=== PATIENT | male | born 1965 | race Caucasian/White ===

== ENCOUNTER → 2017-01-10 | Outpatient (CLI) | payer MEDICAID ==
[~2017-01-10] MED LIST: FLOMAX 0.4MG C0.4 MG PO; HYDROCODONE1 TABLET PO; NORCO 325 MG-51 TAB PO
[2017-01-10 18:03] LABS: HEMOGLOBIN 15.6 g/dL (14.1-18.0); LYMPH # 3.3 K/mm3 (0.7-4.5); LYMPH % 43.7 % (10-50)
[2017-01-10 18:54] LABS: BUN 11 mg/dL (7-18)
[2017-01-10 20:10] LABS: GFR (ESTIMATED) 78 ML/MIN (>60)
== END ==
LOC: LAB 16:49
PROVIDERS: Nurse Practitioner Family
DX: R53.83 Other fatigue (principal)

== ENCOUNTER 2017-01-11 11:13 | Emergency (ER) | payer SELFPAY ==
[~2017-01-11] VITALS: Ht 177.8 cm; Wt 90.7 kg
--- NOTE | 2017-01-11 11:30 | Emergency Room Report ---
History of Present Illness Time Seen by MD Hwang Presenting Problem in Triage Pt arrived:Walked Presenting Problem:left side pain below rib cage, from back in to abdomen Onset of symptoms date/time:12/21/16 or onset unknown for: Treatment Prior to Arrival: [employer]ACHINE Provided by: Sepsis Risk Assessment: Temp: 98.7 B/P: 176/92 MAP: 120 Pulse: 86 Resp: 16 Recent fever? N Clinical Suspician of Infection? N Mental Status: 1 - Regular (Normal Baseline) Sepsis Risk:Low Sepsis Risk Have you (or family members/close friends) recently traveled outside the [place]? N If Yes, where/when: Have you had exposure to infectious disease within the past month? N TB? Other? Specify: Comment The patient complains of LEFT flank and abdominal pain for several weeks. He says he goes from his LEFT mid lumbar area around to his umbilicus on the LEFT side. It hurts worse when he leans back against that area. eating food makes his symptoms worse. No fever or vomiting. He saw his primary care provider in the office yesterday and had blood work done. His lipase is elevated. He was advised to come to the emergency room today for further workup including CT scan. He does not drink much alcohol, the only thing he has drank recently is occasional small amounts of moonshine. He does not have any known hypercholesterolemia or hyperlipidemia or hypertriglyceridemia. He does not have any known gallbladder problems. ALLERGIES Coded Allergies: No Known Allergies (09/21/15) Home Medications Reported Medications No Known Home Medications History Medical History General CAD? No Angina: No ME: No Hypertension? No Hyperlipidemia? No CHF? No DVT? No PE? No COPD? No Asthma? No Anemia? No GERD? Yes Gastric ulcers? No GI Bleed? No Hernia? No Thyroid Problems? No Hypothyroidism? No CVA? No Seizures? No Diabetes? No Renal Insuffiency? No End Stage Renal Disease? No UTI? No Stones? Yes GB Disease: No Nephritic Syndrome? No Asplenia? No Hepatitis? No Sickle Cell Disease? No Arthritis? No Migraines? No Cataracts? No Glaucoma? No MRSA? No HIV? No TB? No Anxiety? No Depression? No Cancer? No Immunization Hx DT/Tetanus [id number] Surgical Hx Previous Surgery?Y APPENDICITIS LOW BACK SURG Social History Smoking Hx Smoker: Former Smoker Tobacco: No Packs/day < 1 Pack Alcohol Alcohol: No Review of Systems All Other Systems Reviewed and Negative Constitutional denies fever Gastrointestinal abdominal pain, denies diarrhea, nausea, denies vomiting Musculoskeletal back pain Physical Exam Vital Signs Vital Signs Date Time Temp Pulse Resp B/P Pulse O2 O2 Flow FiO2 Ox Delivery Rate 01/11 1454 98.7 81 16 138/84 97 01/11 1255 86 16 169/71 97 01/11 1117 98.7 86 16 176/92 97 General Appearance no apparent distress Eye Exam - bilateral eye normal exam, bilateral eye PERRL, bilateral eye EOMI Ear, Nose, Throat hearing grossly normal, normal ENT inspection Neck normal inspection, non-tender, supple, full range of motion Respiratory Status Yes: trachea midline, chest symmetrical. No: respiratory distress. Lung Sounds bilateral: normal breath sounds, lungs clear. Cardiovascular normal exam, regular rate/rhythm, no peripheral edema, no gallop, no JVD, no murmur, no rub, normal peripheral pulses Peripheral Pulses Pulses normal Yes Gastrointestinal normal bowel sounds, normal exam, non tender, soft, no organomegaly Back normal inspection, no CVA tenderness, no vertebral tenderness Extremities non-tender, normal range of motion, normal inspection Neurologic alert, normal exam, oriented x 3 Mental status normal mood/affect Skin intact, normal color, warm/dry Medical Decision Making LABS/Meds/Orders Pt receiving controlled substance in ED? No Results/Orders Laboratory Tests 01/11/17 1315: Urine Color YELLOW, Urine Appearance CLEAR, Urine pH 7.5, Ur Specific [place] 1.015, Urine Protein NEGATIVE, Urine Ketones NEGATIVE, Urine Blood 1+ H, Urine Nitrate NEGATIVE, Urine Bilirubin NEGATIVE, Urine Urobilinogen 0.2, Ur Leukocyte Esterase NEGATIVE, Urine RBC 3-5, Urine WBC OCC, Ur Squamous Epith Cells OCC, Urine Bacteria 2+, Urine Mucus 3+, Urine Glucose NEGATIVE 01/11/17 1120: Sodium 139, Potassium 3.8, Chloride 103, Carbon Dioxide 29, BUN 15, Creatinine 0.9, Estimated Creat Clear 122, Estimated GFR (MDRD) 88, Glucose 95, Calcium 9.1 , Total Bilirubin 0.5, AST 31, ALT 53, Alkaline Phosphatase 85, Total Protein 7.8, Albumin 4.0, Globulin 3.8 H, Albumin/Globulin Ratio 1.1, Amylase 79, Lipase 445 H, WBC 9.1, RBC 5.28, Hgb 15.0, Hct 45.3, MCV 85.7, RDW 13.1, Plt Count 286, MPV 7.1 L, Gran % 42.8, Gran # 3.9, Lymphocytes % 49.4, Monocytes % 6.4, Eosinophils % 0.9, Basophils % 0.5, Lymphocytes # 4.5, Monocytes # 0.6, Eosinophils # 0.1, Basophils # 0.1, PUBS MCHC 33.2, MCH 28.5 Current Medication Orders Sig/Wei Start time Last Medication Dose Route Stop Time Status Admin Iopamidol 75 ML ONCE ONE 01/11 1345 DC 01/11 IV 01/11 1346 1332 Sodium Chloride 10 ML PRN PRN 01/11 1345 DCD 01/11 IV 01/11 1502 1332 Diatrizoate Meglum/ 30 ML ONCE ONE 01/11 1130 DC 01/11 Diatrizoate Sod PO 01/11 1131 1130 Sodium Chloride 10 ML PRN PRN 01/11 1130 DCD IV 01/12 1126 Diatrizoate Meglum/ 0 .STK-MED ONE 01/11 1128 DC Diatrizoate Sod .ROUTE Orders Procedure Date/time Status DIET-NOTHING BY MOUTH 01/11 D Active CULTURE, URINE 01/11 1315 Active URINALYSIS/COMPLETE 01/[address] ABD/PELVIS REQ 01/11 1126 Complete IV SALINE LOCK 01/11 1126 Active LIPASE 01/11 1126 Complete CBC WITH AUTO DIFF 01/11 1126 Complete CHEM 12 PROFILE 01/11 1126 Complete AMYLASE 01/11 1126 Complete XRAY/CT/US XRAY/CT/US CT abdomen, pelvis Comment CT scan interpreted by radiologist: No signs of pancreatitis. No acute process. Progress - 2:20 PM: Case discussed with Dr. Esquivel. Patient will be discharged to follow up in their office next week. Departure Departure Disposition DC Home or Self Care(routine) Clinical Impression Primary Impression: Pancreatitis Qualifiers: Chronicity: acute Pancreatitis type: unspecified pancreatitis type Acute pancreatitis complication: no infection or necrosis Qualified Code: K85.90 - Acute pancreatitis without necrosis or infection, unspecified Condition STABLE Patient Instructions DI for Pancreatitis Additional Instructions Follow-up with Dr. Esquivel in the office next week. Prescriptions Current Visit Scripts No Known Home Medications ED Critical Care Critical Care No at 1947
[2017-01-11 11:43] LABS: LYMPH # 4.5 K/mm3 (0.7-4.5); LYMPH % 49.4 % (10-50)
--- OUTSIDE RECORDS SUMMARY | 2017-01-11 11:58 | External Medical Summary Rpt | CCD ---
Author Author , ARIEL GEORGE Address Unknown Phone [email or web address] Providers Care Applied Anthropologist Name Role Phone [facility] Unavailable Unavailable [facility] [place] OF [facility] Unavailable Unavailable INC, [facility], Unavailable [facility] Un[facility] Unavailable [facility], [facility], Unavailable Unavailable [facility] Purpose Continuity of Care Document - 10-21-2014 through 2016 Problems Code Diagnosis DOS Provider Status D481 NEOPLASM 10-02-2015 [facility] PHYSICI[facility] BHV GROUP CONNCTIVE & OTH SOFT TISS Z9889 OTHER 10-01-2015 [facility] STATES D1739 BENIGN 09-24-2015 [facility] LIPOMATOUS PODIATRY NEOPLASM SKIN & SUBQ OT SITE G8918 OTHER ACUTE 09-24-2015 [facility]U [facility] PAIN I890 LYMPHEDEMA 09-24-2015 [facility] NOT PODIATRY ELSEWHERE CLASSIFIED R2242 LOCALIZED 09-21-2015 [facility] OF [place] AND [place] LEFT LOWER LIMB M799 SOFT TISSUE 09-18-2015 [facility] DISORDER PHYSICIANS UNSPECIFIED GROUP M2570 OSTEOPHYTE 09-15-2015 [facility] UNSPECIFIED PODIATRY JOINT [id number] PAIN IN 09-15-2015 [facility] LEFT FOOT PODIATRY [id number] GANGLION 08-17-2015 [facility] M5010 CERVICAL 12-22-2014 [facility] DISC D/O PHYSICIANS W/RADICULOP GROUP ATHY UNS CERV RGN Z720 TOBACCO USE 12-22-2014 [facility] PHYSICIANS GROUP M5090 CERVICAL 11-20-2014 [facility] DISC PHYSICIANS DISORDER GROUP UNS UNS CERVICAL REGION M6530 TRIGGER 11-20-2014 [facility] FINGER PHYSICIANS UNSPECIFIED GROUP FINGER [id number] STRAIN 11-20-2014 [facility] MUSCLE PHYSICIANS FASCIA & GROUP TENDON LOW BACK INITIAL M542 CERVICALGIA 11-13-2014 [facility] Z5189 ENCOUNTER 11-13-2014 [facility] SPECIFIED INC AFTERCARE 7231 CERVICALGIA 10-21-2014 [facility] V571 OTHER 10-21-2014 [facility] Results Labs Lab Lab Date Result Refere Interp Status Commen Order Detail nces retati t Range on CBC w auto diff (01-11-2017 11:20) Automat = 0.1 0-0.2 complet ed 017 K/MM3 ed blood 11:20 basophi l count (count/ vo Baso % = 0.5 % 0.1-2.0 complet 017 ed 11:20 Automat = 0.1 0.0-0.4 complet ed 017 K/mm3 ed blood 11: eosinop hil count Automat = 0.9 % 0.1-12. complet ed 017 0 ed blood 11:20 eosinop hils/10 0 leukocy t Blood = 3.9 1.3-8.0 complet granulo 017 K/mm3 ed cytes 11:20 automat ed count (numb Granulo = 42.8 37.0-80 complet cyte 017 % .0 ed percent 11:20 age Blood = 45.3 42.0-52 complet hematoc 017 % .0 ed rit 11:20 (volume fractio n) Blood = 15.0 14.1-18 complet hemoglo 017 g/dL .0 ed bin 11:20 measure ment (mass/v olum Absolut = 4.5 0.7-4.5 complet e 017 K/mm3 ed lymphoc 11:20 yte count Lymphoc = 49.4 10-50 complet yte 017 % ed count, 11:20 blood, automat ed Mean = 28.5 27-31.2 complet corpusc 017 pg ed ular 11:20 hemoglo bin (MCH) determ Automat = 33.2 31.8-35 complet ed 017 g/dl .4 ed erythro 11:20 cyte mean corpusc ular h Automat = 85.7 82.2-97 complet ed 017 fl .8 ed erythro 11:20 cyte mean corpusc ular v Absolut = 0.6 0.1-1.0 complet e 017 K/mm3 ed monocyt 11:20 e count Meagher % = 6.4 % 1.7-9.3 complet 017 ed 11:20 Automat 2 = 7.1 7.4-10. complet ed 017 fl 4 ed blood 11:20 platele t mean volume slime Blood = 286 142-424 complet platele 017 K/mm3 ed t count 11: Red = 5.28 4.6-6.2 complet blood 017 M/mm3 ed cell 11:20 count Automat = 13.1 11.5-17 complet ed 017 % .5 ed erythro 11:20 cyte distrib ution width Blood = 9.1 4.8-10. complet leukocy 017 K/MM3 8 ed jonna 11:20 count (number /volume ) Amylase ser/plas (01-10-2017 11:10) Amylase = 132 25-115 complet 017 U/L ed ser/selene 11:10 s Comprehensive metabolic panel (01-10-2017 11:10) Serum = 11 7-18 complet or 017 mg/dL ed plasma 11:10 urea nitroge n measure men Serum = 9.5 8.5-10. complet or 017 mg/dL 1 ed plasma 11:10 calcium measure ment (mas Serum = 105 98-107 complet or 017 mmoL/L ed plasma 11:10 chlorid e measure ment (mo Carbon = 29 21.0-32 complet dioxide 017 mmoL/L .0 ed 11:10 measure ment Serum = 1.0 0.70-1. complet or 017 mg/dL 30 ed plasma 11:10 creatin ine measure ment ( Estimat = 78 >60 complet ed 017 ML/MIN ed glomeru 11:10 lar filtrat ion rate (GF Comment: REFERENCE RANGE: >60 ML/MIN/1.73 SQUARE METERS Comment: If this patient is -Swedish, then multiply the Comment: result by 1.210. Serum = 3.6 1.3-3.2 complet globuli 017 gm/dL ed n 11:10 measure ment (mass/v olume) Serum = 99 74-106 complet or 017 mg/dL ed plasma 11:10 glucose measure ment (mas Serum = 4.9 3.5-5.1 complet potassi 017 mmoL/L ed um 11:10 measure ment Serum = 142 136-145 complet sodium 017 mmoL/L ed measure 11:10 ment Serum = 44 15-37 complet or 017 U/L ed plasma 11:10 asparta te aminotr ansfera ALT = 64 12-78 complet (SGPT) 017 U/L ed ser/selene 11:10 s Protein = 8.1 6.4-8.2 complet total 017 gm/dL ed ser/selene 11:10 s Serum = 1.3 1.1-1.8 complet or 017 ed plasma 11:10 albumin /globul in mass ra Serum = 4.5 3.4-5.0 complet or 017 gm/dL ed plasma 11:10 albumin measure ment (mas Serum = 86 46-116 complet or 017 U/L ed plasma 11:10 alkalin e phospha tase slime Serum = 0.6 0.2-1.0 complet or 017 mg/dL ed plasma 11:10 total bilirub in measure m Lipase measurement (01-10-2017 11:10) Lipase = 1703 73-393 complet measure 017 U/L ed ment 11:10 Comment: NOTIFICATION RESULT CBC w auto diff (01-10-2017 11:10) Blood = 15.6 14.1-18 complet hemoglo 017 g/dL .0 ed bin 11:10 measure ment (mass/v olum Granulo = 48.7 37.0-80 complet cyte 017 % .0 ed percent 11:10 age Blood = 3.7 1.3-8.0 complet granulo 017 K/mm3 ed cytes 11:10 automat ed count (numb Automat 11-28-2 = 0.9 % 0.1-12. complet ed 017 0 ed blood 11:10 eosinop hils/10 0 leukocy t Automat = 0.1 0.0-0.4 complet ed 017 K/mm3 ed blood 11:10 eosinop hil count Baso % = 0.5 % 0.1-2.0 complet 017 ed 11:10 Automat = 0.0 0-0.2 complet ed 017 K/MM3 ed blood 11:10 basophi l count (count/ vo Blood = 7.6 4.8-10. complet leukocy 017 K/MM3 8 ed jonna 11:10 count (number /volume ) Automat = 13.3 11.5-17 complet ed 017 % .5 ed erythro 11:10 cyte distrib ution width Red = 5.47 4.6-6.2 complet blood 017 M/mm3 ed cell 11:10 count Blood = 295 142-424 complet platele 017 K/mm3 ed t count 11:10 Automat = 8.5 7.4-10. complet ed 017 fl 4 ed blood 11:10 platele t mean volume slime Meagher % = 6.2 % 1.7-9.3 complet 017 ed 11:10 Absolut = 0.5 0.1-1.0 complet e 017 K/mm3 ed monocyt 11:10 e count Automat = 88.3 82.2-97 complet ed 017 fl .8 ed erythro 11:10 cyte mean corpusc ular v Automat = 32.3 31.8-35 complet ed 017 g/dl .4 ed erythro 11:10 cyte mean corpusc ular h Mean = 28.5 27-31.2 complet corpusc 017 pg ed ular 11:10 hemoglo bin (MCH) determ Lymphoc = 43.7 10-50 complet yte 017 % ed count, 11:10 blood, automat ed Absolut = 3.3 0.7-4.5 complet e 017 K/mm3 ed lymphoc 11:10 yte count Blood 01-10-2 = 48.3 42.0-52 complet hematoc 017 % .0 ed rit 11:10 (volume fractio n) Encounters Encounter Start End Date Code Location Performer Type Date [facility] - [facility] 5 [facility]
--- OUTSIDE RECORDS SUMMARY | 2017-01-11 11:58 | External Medical Summary Rpt | CCD ---
Author Author , ARIEL GEORGE Address Unknown Phone [email or web address] Providers Care L Tacker Name Role Phone [facility] Unavailable Unavailable [facility] [place], [facility] ANEST[facility] OF [facility] Unavailable Unavailable INC, [facility]available [facility], Unavailable Unavailable PLL[facility], [facility], Unavailable Unavailable [facility] Purpose Continuity of Care Document - 10-21-2014 through 2016 Problems Code Diagnosis DOS Provider Status D481 NEOPLASM 10-02-2015 [facility] BHV GROUP CONNCTIVE & OTH SOFT TISS Z9889 OTHER 10-01-2015 [facility] POST[facility]EDU [facility] STATES D1739 BENIGN 09-24-2015 [facility] LIPOMATOUS PODIATRY NEOPLASM SKIN & SUBQ OT SITE G8918 OTHER ACUTE 09-24-2015 [facility] POSTPROC[facility]U [facility] PAIN I890 LYMPHEDEMA 09-24-2015 [facility] NOT PODIATRY ELSEWHERE CLASSIFIED R2242 LOCALIZED 09-21-2015 [facility] OF [place] AND [place]UE LUMP LEFT LOWER LIMB M799 SOFT TISSUE 09-18-2015 [facility] DISORDER PHYSICIANS UNSPECIFIED GROUP M2570 OSTEOPHYTE 09-15-2015 PRO[facility] UNSPECIFIED PODIATRY JOINT M00576 PAIN IN 09-15-2015 [facility] LEFT FOOT PODIATRY M61436 GANGLION 08-17-2015 [facility] M5010 CERVICAL 12-22-2014 [facility] DISC D/O PHYSICIANS W/RADICULOP GROUP ATHY UNS CERV RGN Z720 TOBACCO USE 12-22-2014 [facility] PHYSICIANS GROUP M5090 CERVICAL 11-20-2014 [facility] DISC PHYSICIANS DISORDER GROUP UNS UNS CERVICAL REGION M6530 TRIGGER 11-20-2014 [facility] FINGER PHYSICIANS UNSPECIFIED GROUP FINGER [id number] STRAIN 11-20-2014 [facility] MUSCLE PHYSICIANS FASCIA & GROUP TENDON LOW BACK INITIAL M542 CERVICALGIA 11-13-2014 [facility] Z5189 ENCOUNTER 11-13-2014 [facility] SPECIFIED INC AFTERCARE 7231 CERVICALGIA 10-21-2014 [facility] V571 OTHER 10-21-2014 [facility] Results Labs Lab Lab [...] 017 K/mm3 ed monocyt 11:20 e count Lander % = 6.4 % 1.7-9.3 complet 017 [...] SQUARE METERS Comment: If this patient is -Grenadian, then multiply the Comment: result by 1.210. [...] blood 11:10 platele t mean volume slime Lander % = 6.2 % 1.7-9.3 complet 017 [...] End Date Code Location Performer Type Date [facility] - 5 5 [facility] - [facility] 5 [facility] ON LICENSE OF [facility]
--- OUTSIDE RECORDS SUMMARY | 2017-01-11 11:59 | External Medical Summary Rpt | CCD ---
Demographics Preferred Language Latvian Marital Status Unknown Caodaism Affiliation Unknown Race Unknown Ethnic Group Unknown Author Author , ARIEL GEORGE Address Unknown Phone Immunization No patient found.
--- OUTSIDE RECORDS SUMMARY | 2017-01-11 11:59 | External Medical Summary Rpt | CCD ---
Author Author [facility] Organization [facility] Address Unknown Phone Unavailable Purpose Continuity of Care Document - through 2016
--- OUTSIDE RECORDS SUMMARY | 2017-01-11 11:59 | External Medical Summary Rpt | CCD ---
Demographics Preferred Language Tajik Marital Status Unknown Christian Affiliation Unknown Race Unknown Ethnic Group Unknown Author Author , ARIEL GEORGE Address Unknown Phone Immunization No patient found.
--- OUTSIDE RECORDS SUMMARY | 2017-01-11 11:59 | External Medical Summary Rpt ---
Author Author [facility] [employer], [facility] [employer] Organization [facility] [employer] Address Unknown Phone Unavailable Results CBC W Auto Differential panel in Blood Observa Value Referen Units Interpr Notes Date tion ce etation Range Basophils 0 - 0.2 K/MM3 Normal No Jan 11 inform2016 [#/volume on in 11:20 AM ] in source Blood by data Automated count Basophils 0.1 - 2.0 % Normal No Jan 11 / inform2016 leukocyte on in 11:20 AM s in source Blood by data Automated count Eosinophi 0.0 - 0.4 K/mm3 Normal No Jan 11 ls informati 2016 [#/volume on in 11:20 AM ] in source Blood by data Automated count Eosinophi 0.1 - % Normal No Jan 11 ls/100 12.0 inform2016 leukocyte on in 11:20 AM s in source Blood by data Automated count Granulocy 1.3 - 8.0 K/mm3 Normal No Jan 11 jonna ati 2016 [#/volume on in 11:20 AM ] in source Blood by data Automated count Granulocy 37.0 - % Normal No Jan 11 jonna/100 80.0 2016 leukocyte on in 11:20 AM s in source Blood by data Automated count Hematocri 42.0 - % Normal Jan 11 t [Volume 52.0 ati 2016 on in 11:20 AM Fraction] source of Blood data Hemoglobi 14.1 - g/dL Normal No Jan 11 n 18.0 informati 2016 [Mass/vol on in 11:20 AM ume] in source Blood data Lymphocyt 0.7 - 4.5 K/mm3 Normal No Jan 11 es informati 2016 [#/volume on in 11:20 AM ] in source Unspecifi data ed specimen by Automated count Lymphocyt 10 - 50 % Normal No Jan 11 es informati 2016 [#/volume on in 11:20 AM ] in source Unspecifi data ed specimen by Automated count Erythrocy 27 - 31.2 pg Normal No Jan 11 te mean ati 2016 corpuscul on in 11:20 AM ar source hemoglobi data n [Entitic mass] Erythrocy 31.8 - g/dl Normal No Jan 11 te mean 35.4 2016 corpuscul on in 11:20 AM ar source hemoglobi data n concentra tion [Mass/vol ume] by Automated count Erythrocy 82.2 - fl Normal No Jan 11 te mean 97.8 2016 corpuscul on in 11:20 AM ar volume source [Entitic data volume] by Automated count Monocytes 0.1 - 1.0 K/mm3 Normal No Jan 11 inform2016 [#/volume on in 11:20 AM ] in source Blood by data Automated count Monocytes 1.7 - 9.3 % Normal No Jan 11 /100 inform2016 leukocyte on in 11:20 AM s in source Blood by data Automated count Platelet 7.4 - fl Low No Jan 11 mean 10.4 2016 volume on in 11:20 AM [Entitic source volume] data in Blood by Automated count Platelets 142 - 424 K/mm3 Normal No Jan 11 inform2016 [#/volume on in 11:20 AM ] in source Blood data Erythrocy 4.6 - 6.2 M/mm3 Normal No Jan 11 jonna inform2016 [#/volume on in 11:20 AM ] in source Amniotic data fluid Erythrocy 11.5 - % Normal No Jan 11 te 17.5 2016 distribut on in 11:20 AM ion width source [Entitic data volume] by Automated count Leukocyte 4.8 - K/MM3 Normal No Jan 11 s 10.8 informati 2016 [#/volume on in 11:20 AM ] in source Blood data Amylase [Enzymatic activity/volume] in Serum or Plasma Observa Value Referen Units Interpr Notes Date tion ce etation Range Amylase 25 - 115 U/L High No Jan 10 [Enzymati informati 2016 c on in 11:10 AM activity/ source volume] data in Serum or Plasma Comprehensive metabolic 2000 panel in Serum or Plasma Observa Value Referen Units Interpr Notes Date tion ce etation Range Albumin/G 1.1 - 1.8 No Normal No Jan 10 lobulin informati inform2016 [Mass on in on in 11:10 AM ratio] in source source Serum or data data Plasma Albumin 3.4 - 5.0 gm/dL Normal No Jan 10 [Mass/vol informati 2016 ume] in on in 11:10 AM Serum or source Plasma data Alkaline 46 - 116 U/L Normal No Jan 10 phosphata informati 2016 se on in 11:10 AM [Enzymati source c data activity/ volume] in Serum or Plasma Bilirubin 0.2 - 1.0 mg/dL Normal Jan 10 .total informati 2016 [Mass/vol on in 11:10 AM ume] in source Serum or data Plasma Urea 7 - 18 mg/dL Normal Jan 10 nitrogen informati 2016 [Mass/vol on in 11:10 AM ume] in source Serum or data Plasma Calcium 8.5 - mg/dL Normal Jan 10 [Mass/vol 10.1 informati 2016 ume] in on in 11:10 AM Serum or source Plasma data Chloride 98 - 107 mmoL/L Normal Jan 10 [Moles/vo informati 2016 lume] in on in 11:10 AM Serum or source Plasma data Carbon 21.0 - mmoL/L Normal Jan 10 dioxide, 32.0 informati 2016 total on in 11:10 AM [Moles/vo source lume] in data Serum or Plasma Creatinin 0.70 - mg/dL Normal No Jan 10 e 1.30 informati 2016 [Mass/vol on in 11:10 AM ume] in source Serum or data Plasma Estimated >60 ML/MIN No REFERENCE Jan 10 informati RANGE: 2017 glomerula on in >60 11:10 AM r source ML/MIN/1. filtratio data 73 SQUARE n rate METERSIf (GF this patient is -A merican, then multiply theresult by 1.210. Globulin 1.3 - 3.2 gm/dL High No Jan 10 [Mass/vol informati 2016 ume] in on in 11:10 AM Serum source data Glucose 74 - 106 mg/dL Normal Jan 10 [Mass/vol informati 2016 ume] in on in 11:10 AM Serum or source Plasma data Potassium 3.5 - 5.1 mmoL/L Normal Jan 10 informati 2016 [Moles/vo on in 11:10 AM lume] in source Serum or data Plasma Sodium 136 - 145 mmoL/L Normal No Jan 10 [Moles/vo informati 2017 lume] in on in 11:10 AM Serum or source Plasma data Aspartate 15 - 37 U/L High No Jan 10 informati 2016 aminotran on in 11:10 AM sferase source [Enzymati data c activity/ volume] in Serum or Plasma Alanine 12 - 78 U/L Normal No Jan 10 aminotran 2016 sferase on in 11:10 AM [Enzymati source c data activity/ volume] in Serum or Plasma Protein 6.4 - 8.2 gm/dL Normal No Jan 10 [Mass/vol ati 2016 ume] in on in 11:10 AM Serum or source Plasma data Lipase [Enzymatic activity/volume] in Serum or Plasma Observa Value Referen Units Interpr Notes Date tion ce etation Range Lipase 73 - 393 U/L High Jan 10 [Enzymati NOTIFICAT 2017 c ION 11:10 AM activity/ RESULT volume] in Serum or Plasma CBC W Auto Differential panel in Blood Observa Value Referen Units Interpr Notes Date tion ce etation Range Basophils 0 - 0.2 K/MM3 Normal No Jan 102016 [#/volume on in 11:10 AM ] in source Blood by data Automated count Basophils 0.1 - 2.0 % Normal No Jan 10 /100 2016 leukocyte on in 11:10 AM s in source Blood by data Automated count Eosinophi 0.0 - 0.4 K/mm3 Normal No Jan 10 ls 2016 [#/volume on in 11:10 AM ] in source Blood by data Automated count Eosinophi 0.1 - % Normal No Jan 10 ls/100 12.0 2016 leukocyte on in 11:10 AM s in source Blood by data Automated count Granulocy 1.3 - 8.0 K/mm3 Normal No Jan 10 jonna 2016 [#/volume on in 11:10 AM ] in source Blood by data Automated count Granulocy 37.0 - % Normal No Jan 10 jonna/100 80.0 2016 leukocyte on in 11:10 AM s in source Blood by data Automated count Hematocri 42.0 - % Normal Jan 10 t [Volume 52.0 2016 on in 11:10 AM Fraction] source of Blood data Hemoglobi 14.1 - g/dL Normal Jan 10 n 18.0 2016 [Mass/vol on in 11:10 AM ume] in source Blood data Lymphocyt 0.7 - 4.5 K/mm3 Normal No Jan 10 es 2016 [#/volume on in 11:10 AM ] in source Unspecifi data ed specimen by Automated count Lymphocyt 10 - 50 % Normal No Jan 10 es informati 2016 [#/volume on in 11:10 AM ] in source Unspecifi data ed specimen by Automated count Erythrocy 27 - 31.2 pg Normal No Jan 10 te mean inform2016 corpuscul on in 11:10 AM ar source hemoglobi data n [Entitic mass] Erythrocy 31.8 - g/dl Normal No Jan 10 te mean 35.4 inform2016 corpuscul on in 11:10 AM ar source hemoglobi data n concentra tion [Mass/vol ume] by Automated count Erythrocy 82.2 - fl Normal No Jan 10 te mean 97.8 informati 2016 corpuscul on in 11:10 AM ar volume source [Entitic data volume] by Automated count Monocytes 0.1 - 1.0 K/mm3 Normal No Jan 102016 [#/volume on in 11:10 AM ] in source Blood by data Automated count Monocytes 1.7 - 9.3 % Normal No Jan 10 /100 inform2016 leukocyte on in 11:10 AM s in source Blood by data Automated count Platelet 7.4 - fl Normal No Jan 10 mean 10.4 informati 2016 volume on in 11:10 AM [Entitic source volume] data in Blood by Automated count Platelets 142 - 424 K/mm3 Normal No Jan 10 informati 2016 [#/volume on in 11:10 AM ] in source Blood data Erythrocy 4.6 - 6.2 M/mm3 Normal No Jan 10 jonna informati 2016 [#/volume on in 11:10 AM ] in source Amniotic data fluid Erythrocy 11.5 - % Normal No Jan 10 te 17.5 informati 2016 distribut on in 11:10 AM ion width source [Entitic data volume] by Automated count Leukocyte 4.8 - K/MM3 Normal No Jan 10 s 10.8 informati 2016 [#/volume on in 11:10 AM ] in source Blood data
[2017-01-11 13:26] LABS: URINE BILIRUBIN - DIPSTICK NEGATIVE (NEG); URINE BLOOD 1+ (NEG)
[2017-01-11 13:46] LABS: URINE SQUAMOUS CELLS OCC #/hpf (OCC)
--- NOTE | 2017-01-11 14:05 | RADIOLOGY REPORT PS360 ---
CT ABD PELVIS W/ CONTRAST CLINICAL INDICATION: Left-sided abdominal pain radiating into the back R/O PANCREATITIS,DUE TO LAB INCREASE ORDERING PHYSICIAN: Luis Thomson MD PATIENT AGE: 51 years COMPARISON: 12/29/2013 TECHNIQUE: Axial images obtained with sagittal and coronal reformats.. 3 phase imaging performed PROCEDURE: Oral Contrast: Gastroview IV Contrast: 75 mL [id number] . FINDINGS: Liver, spleen, adrenal glands, and pancreas have an unremarkable appearance. No evidence of pancreatic mass, ductal dilatation, peripancreatic inflammation, or peripancreatic fluid collection. No renal or ureteral calculi or hydronephrosis. 8 mm left renal cyst is present. There are few scattered small nodes in the retroperitoneum nonspecific. No intestinal obstruction or free air. No evidence of appendicitis or diverticulitis. There is some mild thickening versus nondistention of the sigmoid colon. Mild colitis is not excluded. No abnormal fluid collections or acute bony anomalies. IMPRESSION: 1. No evidence of pancreatitis 2. Mild thickening versus nondistention of the sigmoid colon which may be seen with colitis.
[2017-01-11 14:54] VITALS: BP 138/84
== END 2017-01-11 14:54 | disposition home or self-care (01) ==
LOC: ER 11:13
PROVIDERS: Emergency Medicine
DX: K85.90 Acute pancreatitis without necrosis or infection, unspecified (principal)
CPT/HCPCS: Q9967